=== PATIENT | male | born 1995 | race Hispanic/Latino ===

== ENCOUNTER 2020-11-01 09:39 | Outpatient (RCR) | payer SELFPAY | END 2020-11-02 | LOC: OT 09:39 | PROVIDERS: ATTEND Specialist | DX: S43.015D Anterior dislocation of left humerus, subsequent encounter (principal) ==

== ENCOUNTER 2020-11-16 12:51 | Outpatient (RCR) | payer SELFPAY | END 2020-12-03 | LOC: OT 12:51 | PROVIDERS: ATTEND Specialist | DX: S43.015D Anterior dislocation of left humerus, subsequent encounter (principal) ==